=== PATIENT | female | born 1995 | race Two or more races ===

== ENCOUNTER 2019-03-29 18:00 | Emergency (ER) | payer OTHER ==
[~2019-03-29] VITALS: Ht 152.4 cm; Wt 52.6 kg
[2019-03-29] MEDS ORDERED: PRENATABS RX T1 EACH (18:13)
[2019-03-29] MEDS ORDERED: LEVOTHYROXINE25 MCG (18:13)
[2019-03-29] MEDS ORDERED: SINGULAIR10 MG (18:14)
[2019-03-29] MEDS ORDERED: ALLEGRA-D 24 H1 EACH (18:14)
== END 2019-03-29 21:18 | disposition home or self-care (01) ==
LOC: ER 18:00
DX: O20.0 Threatened abortion (principal)

== ENCOUNTER 2019-03-30 11:54 | Day surgery (SDC) | payer OTHER ==
[~2019-03-30] VITALS: Ht 152.4 cm; Wt 52.6 kg
[~2019-03-30 11:54] MED LIST: ALLEGRA-D 24 H1 EACH; LEVOTHYROXINE25 MCG; PRENATABS RX T1 EACH; SINGULAIR10 MG
== END 2019-03-31 00:20 | disposition home or self-care (01) ==
LOC: ER 11:54 → CIR.AMB 13:19
DX: O02.1 Missed abortion (principal); Z3A.01 Less than 8 weeks gestation of pregnancy